=== PATIENT | male | born 1990 | race Caucasian/White ===

== ENCOUNTER 2017-03-26 03:58 | Emergency (ER) | payer MEDICAID ==
[2017-03-26] MEDS ORDERED: cefTRIAXone 500 MG Vial IM ONE (04:40)
[2017-03-26] MEDS ORDERED: Doxycycline 100 MG Cap PO ONE (04:41)
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
== END 2017-03-26 05:14 | disposition home or self-care (01) ==
LOC: JP.ED 03:58
DX: R36.9 Urethral discharge, unspecified (principal); R42 Dizziness and giddiness
CPT/HCPCS: 87491; 87591; 96372; 99284; A9270; J0696

== ENCOUNTER 2017-09-12 08:56 | Emergency (ER) | payer MEDICAID ==
[2017-09-12] MEDS ORDERED: fentaNYL 100 MCG/2 ML SDV IM ONE (09:32)
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
== END 2017-09-12 11:00 | disposition home or self-care (01) ==
LOC: JP.ED 08:56
DX: S13.4XXA Sprain of ligaments of cervical spine, initial encounter (principal); V89.2XXA Person injured in unspecified motor-vehicle accident, traffic, initial encounter; Y92.411 Interstate highway as the place of occurrence of the external cause
CPT/HCPCS: 70450; 70486; 72125; 96372; 99284; J3010

== ENCOUNTER 2019-10-23 20:43 | Emergency (ER) | payer MEDICAID ==
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
== END 2019-10-23 21:20 | disposition home or self-care (01) ==
LOC: JP.ED 20:43
DX: K04.7 Periapical abscess without sinus (principal)
CPT/HCPCS: 99282